=== PATIENT | female | born 1965 | race Caucasian/White ===

== ENCOUNTER 2021-06-30 15:51 | Observation (INO) | payer BC ==
--- NOTE | 2021-06-30 16:25 | ED ---
General Adult HPI - General Chief complaint: Chest Pain Stated complaint: chest tightness,HBP Time Seen by Provider: 06/30/21 16:13 Source: patient Mode of arrival: wheelchair Limitations: no limitations - History of Present Illness Initial comments: Dictation was produced using [employer] dictation software. please excuse any grammatical, word or spelling errors. Chief Complaint: 55-year-old female past medical history of hypertension and a Kierra's thyroiditis presents to emergency department for elevated blood pressure and chest tightness. History of Present Illness: 55-year-old female just emergency department for chest tightness and hypertension. She states she feels slightly anxious. She states that she has chest tightness. She describes it as a squeezing chest pressure that radiates to her right jaw. Patient denies any history of coronary artery disease. She is recently diagnosed hypertension and feels like her medications aren't working. She is feeling very anxious due to a lot of personal stressors in the last year. The ROS documented in this emergency department record has been reviewed and confirmed by me. Those systems with pertinent positive or negative responses have been documented in the HPI. All other systems are other negative and/or noncontributory. PHYSICAL EXAM: General Impression: Alert and oriented x3, not in acute distress HEENT: Normocephalic atraumatic, extra-ocular movements intact, pupils equal and reactive to light bilaterally, mucous membranes moist. Cardiovascular: Heart regular rate and rhythm Chest: Able to complete full sentences, no retractions, no tachypnea Abdomen: abdomen soft, non-tender, non-distended, no organomegaly Musculoskeletal: Pulses present and equal in all extremities, no peripheral edema Motor: no focal deficits noted Neurological: CN II-XII grossly intact, no focal motor or sensory deficits noted Skin: Intact with no visualized rashes Psych: Normal affect and mood ED course: 55-year-old well-appearing female presents with trouble chest pain with typical features. Vital signs upon arrival are within acceptable limits. Laboratory evaluation obtained. Mild leukocytosis of 11.5, macrocytosis 12.7, hemoglobin 16.2. Coagulation panel is negative. Sodium 129, potassium 3.0. Troponin is negative. The liver enzymes. Chest x-ray is nonacute. Patient given aspirin. Disposition options were discussed she is agreeable for admission. Patient's injury with IV fluids. Troponin is treated with oral potassium. Patient agreeable with admission to observation with consult to cardiology. EKG interpretation: Ventricular rate 90, normal sinus rhythm,. Interval 150, QRS 90, QTC 486. No [place] prolongation, no QTC prolongation, no ST or T-wave changes noted. Overall, this EKG is unremarkable - Related Data Home Medications Medication Instructions Recorded Confirmed Ascorbic Acid [Vitamin C] 1,000 mg PO DAILY 06/30/21 06/30/21 Cholecalciferol [Vitamin D3 (25 25 mcg PO DAILY 06/30/21 06/30/21 Mcg = 1000 Iu)] Levothyroxine Sodium [Synthroid] 175 mcg PO DAILY 06/30/21 06/30/21 [place]-3 Fatty Acids/Fish Oil [Fish 1 cap PO DAILY 06/30/21 06/30/21 Oil 1,000 mg Softgel] Ubidecarenone [Co Q-10] 100 mg PO DAILY 06/30/21 06/30/21 Zinc Gluconate [Zinc] 50 mg PO DAILY 06/30/21 06/30/21 hydroCHLOROthiazide 25 mg PO DAILY 06/30/21 06/30/21 Allergies Allergy/AdvReac Type Severity Reaction Status Date / Time Penicillins Allergy Unknown Verified 06/30/21 17:35 Review of Systems ROS Statement: Those systems with pertinent positive or pertinent negative responses have been documented in the HPI. ROS Other: All systems not noted in ROS Statement are negative. Past Medical History Past Medical History: Hypertension, Thyroid Disorder Additional Past Medical History / Comment(s): hashimotos History of Any Multi-Drug Resistant Organisms: None Reported Past Surgical History: Section Past Psychological History: Anxiety, Depression, PTSD Smoking Status: Never smoker Past Alcohol Use History: Daily Past Drug Use History: None Reported General Exam Limitations: no limitations Course Vital Signs 06/30/21 15:59 Temperature 98.2 F Pulse Rate 96 Respiratory 16 Rate Blood Pressure 160/106 O2 Sat by Pulse 95 Oximetry Medical Decision Making - Lab Data Result diagrams: 06/30/21 16:26 06/30/21 16:26 Lab Results 06/30/21 06/30/21 06/30/21 Range/Units 16:26 16:26 16:26 WBC 11.5 H (3.8-10.6) k/uL RBC 4.49 (3.80-5.40) m/uL Hgb 16.2 H (11.4-16.0) gm/dL Hct 46.1 H (34.0-46.0) % MCV 102.7 H (80.0-100.0) fL MCH 36.2 H (25.0-35.0) pg MCHC 35.2 (31.0-37.0) g/dL RDW 13.2 (11.5-15.5) % Plt Count 256 (150-450) k/uL MPV 7.6 Neutrophils % (Manual) 77 % Lymphocytes % (Manual) 15 % Monocytes % (Manual) 6 % Eosinophils % (Manual) 2 % Neutrophils # (Manual) 8.86 H (1.3-7.7) k/uL Lymphocytes # (Manual) 1.73 (1.0-4.8) k/uL Monocytes # (Manual) 0.69 (0-1.0) k/uL Eosinophils # (Manual) 0.23 (0-0.7) k/uL Nucleated RBCs 0 (0-0) /100 WBC Manual Slide Review Performed Macrocytosis Slight PT 11.4 (9.0-12.0) sec INR 1.1 (<1.2) APTT 24.7 (22.0-30.0) sec Sodium 129 L (137-145) mmol/L Potassium 3.0 L (3.5-5.1) mmol/L Chloride 89 L (98-107) mmol/L Carbon Dioxide 28 (22-30) mmol/L Anion Gap 12 mmol/L BUN 7 (7-17) mg/dL Creatinine 0.40 L (0.52-1.04) mg/dL Est GFR (CKD-EPI)AfAm >90 (>60 ml/min/1.73 sqM) Est GFR (CKD-EPI)NonAf >90 (>60 ml/min/1.73 sqM) Glucose 114 H (74-99) mg/dL Calcium 10.3 H (8.4-10.2) mg/dL Magnesium 1.4 L (1.6-2.3) mg/dL Total Bilirubin 2.7 H (0.2-1.3) mg/dL AST 153 H (14-36) U/L ALT 95 H (4-34) U/L Alkaline Phosphatase 193 H (38-126) U/L Troponin I (0.000-0.034) ng/mL Total Protein 8.4 H (6.3-8.2) g/dL Albumin 4.9 (3.5-5.0) g/dL 06/30/21 Range/Units 16:26 WBC (3.8-10.6) k/uL RBC (3.80-5.40) m/uL Hgb (11.4-16.0) gm/dL Hct (34.0-46.0) % MCV (80.0-100.0) fL MCH (25.0-35.0) pg MCHC (31.0-37.0) g/dL RDW (11.5-15.5) % Plt Count (150-450) k/uL MPV Neutrophils % (Manual) % Lymphocytes % (Manual) % Monocytes % (Manual) % Eosinophils % (Manual) % Neutrophils # (Manual) (1.3-7.7) k/uL Lymphocytes # (Manual) (1.0-4.8) k/uL Monocytes # (Manual) (0-1.0) k/uL Eosinophils # (Manual) (0-0.7) k/uL Nucleated RBCs (0-0) /100 WBC Manual Slide Review Macrocytosis PT (9.0-12.0) sec INR (<1.2) APTT (22.0-30.0) sec Sodium (137-145) mmol/L Potassium (3.5-5.1) mmol/L Chloride (98-107) mmol/L Carbon Dioxide (22-30) mmol/L Anion Gap mmol/L BUN (7-17) mg/dL Creatinine (0.52-1.04) mg/dL Est GFR (CKD-EPI)AfAm (>60 ml/min/1.73 sqM) Est GFR (CKD-EPI)NonAf (>60 ml/min/1.73 sqM) Glucose (74-99) mg/dL Calcium (8.4-10.2) mg/dL Magnesium (1.6-2.3) mg/dL Total Bilirubin (0.2-1.3) mg/dL AST (14-36) U/L ALT (4-34) U/L Alkaline Phosphatase (38-126) U/L Troponin I <0.012 (0.000-0.034) ng/mL Total Protein (6.3-8.2) g/dL Albumin (3.5-5.0) g/dL Disposition Clinical Impression: Chest pain Disposition: ADMITTED IP TO THIS HOSP Condition: Fair Referrals: Marina Child III, MD [Primary Care Provider] - 1-2 days
[2021-06-30 16:41] LABS: HCT 46.1 % (34.0-46.0); HGB 16.2 gm/dL (11.4-16.0); MCH 36.2 pg (25.0-35.0); MCHC 35.2 g/dL (31.0-37.0); MCV 102.7 fL (80.0-100.0); Macrocytosis Slight; Mean Platelet Volume 7.6; Platelet Count 256 k/uL (150-450); RBC 4.49 m/uL (3.80-5.40); RDW 13.2 % (11.5-15.5); WBC 11.5 k/uL (3.8-10.6)
[2021-06-30 16:46] LABS: ALT 95 U/L (4-34); AST 153 U/L (14-36); African American GFR (CKD) >90 (>60 ml/min/1.73 sqM); Albumin 4.9 g/dL (3.5-5.0); Alkaline Phosphatase 193 U/L (38-126); Anion Gap 12 mmol/L; Blood Urea Nitrogen 7 mg/dL (7-17); Calcium 10.3 mg/dL (8.4-10.2); Carbon Dioxide 28 mmol/L (22-30); Chloride 89 mmol/L (98-107); Glucose 114 mg/dL (74-99); Magnesium 1.4 mg/dL (1.6-2.3); Non-African American GFR(CKD) >90 (>60 ml/min/1.73 sqM); Sodium 129 mmol/L (137-145); Total Bilirubin 2.7 mg/dL (0.2-1.3); Total Protein 8.4 g/dL (6.3-8.2)
--- NOTE | 2021-06-30 16:46 | XR ---
EXAMINATION TYPE: XR chest 2V DATE OF EXAM: 06/30/2021 COMPARISON: NONE HISTORY: Hypertension TECHNIQUE: FINDINGS: Heart and mediastinum are normal. Lungs are clear. Diaphragm is normal. Bony thorax is inta ct. There are chest leads. IMPRESSION: Normal chest.
[2021-06-30 16:54] LABS: INR 1.1 (<1.2); Partial Thromboplastin Time 24.7 sec (22.0-30.0); Prothrombin Time 11.4 sec (9.0-12.0)
[2021-06-30 17:24] LABS: Eosinophils # (M) 0.23 k/uL (0-0.7); Lymphocytes # (M) 1.73 k/uL (1.0-4.8); Monocytes # (M) 0.69 k/uL (0-1.0); Neutrophils # (M) 8.86 k/uL (1.3-7.7); Neutrophils % (M) 77 %; Nucleated Red Blood Cells 0 /100 WBC (0-0); Total Cells Counted 100
[2021-06-30] MEDS ORDERED: ASPIRIN 81 MG PO STA (17:42)
[2021-06-30] MEDS ORDERED: NITROGLYCERIN SL TABS 0.4 MG TAB SUBLINGUAL PRN (17:42)
[2021-06-30] MEDS ORDERED: SODIUM CHLORIDE 0.9% 1,000 ML IV STA (17:44)
[2021-06-30] MEDS ORDERED: POTASSIUM CHLORIDE ER 20 MEQ TAB.ER PO STA (17:44)
[2021-06-30] MEDS ORDERED: Magnesium Replacement Protocol 1 EACH MISC MISCELLANE PRN (20:52)
[2021-06-30] MEDS: MAGNESIUM SULFATE-D5W PMX 1 GM in DEXTROSE/WATER 1 100ML.BAG IVPB SCH ×2 (22:03→23:38)
[2021-07-01] MEDS: MAGNESIUM SULFATE-D5W PMX 1 GM in DEXTROSE/WATER 1 100ML.BAG IVPB SCH (00:48)
[2021-07-01] MEDS ORDERED: LEVOTHYROXINE 100 MCG TAB PO SCH (06:30)
[2021-07-01] MEDS ORDERED: LEVOTHYROXINE 75 MCG TAB PO SCH (06:30)
[2021-07-01 08:04] VITALS: PULSE 100; RESP 16; TEMP 98.4
[2021-07-01 08:53] LABS: HCT 43.4 % (37.2-46.3); HGB 15.1 g/dL (12.0-15.0); MCH 34.3 pg (27.0-32.0); MCHC 34.8 g/dL (32.0-37.0); MCV 98.6 fL (80.0-97.0); Platelet Count 202 X 10*3/uL (140-440); RDW 12.5 % (11.5-14.5); WBC 6.33 X 10*3/uL (4.50-10.00)
[2021-07-01] MEDS ORDERED: ASPIRIN 325 MG TAB PO SCH (09:00)
[2021-07-01] MEDS ORDERED: hydroCHLOROthiazide 25 MG TAB PO SCH (09:00)
[2021-07-01] MEDS ORDERED: POTASSIUM CHLORIDE ER 20 MEQ TAB.ER PO STA ×2 (09:29→14:24)
[2021-07-01] MEDS ORDERED: amLODIPine 5 MG TAB PO SCH (09:30)
--- NOTE | 2021-07-01 09:57 | P.CRDCN ---
History of Present Illness Consult date: 07/01/21 History of present illness: This is a 55-year-old female with history of hypertension and Kierra's thyroiditis and also alcohol use who started having a tight feeling in the chest that radiated to the jaw associated with some nausea and also shortness of breath. Patient apparently was diagnosed to have hypertension and was recently started on hydrochlorothiazide. There is a history that dose was increased recently. She claimed the other day. Her blood pressure was well controlled, but when she was having symptoms. Her blood pressure was in the range of 170/ 120. She called the primary care physician who advised them to come to the hospital. On admission here patient was found to have hyponatremia and also hypokalemia and also elevated liver enzymes and PHOSPHATASE. APPARENTLY THERE WAS SOME ABNORMAL LIVER ENZYMES IN THE PAST. She had an until midnight last night and seemed to be gradually improving. Her EKG did not reveal any acute changes and her cardiac enzymes are negative. Her blood pressure has been fluctuating. I'm going to discontinue hydrochlorothiazide and give her supplemental potassium and correct hypokalemia and also continue the normal saline to correct her hyponatremia. We'll get an ultrasound of the abdomen to rule out any gallstones or gallbladder disease. Echocardiogram will be ordered. Clinically her pains appear to be atypical. Patient doesn't have any significant risk factors except her mother had heart tissue in her 70s. If the other tests are normal and she remains stable, she will be discharged home for outpatient stress test. Further examination depend upon clinical course Review of Systems As per the chart Past Medical History Past Medical History: Hypertension, Thyroid Disorder Additional Past Medical History / Comment(s): hashimotos History of Any Multi-Drug Resistant Organisms: None Reported Past Surgical History: Section Past Anesthesia/Blood Transfusion Reactions: No Reported Reaction Past Psychological History: Anxiety, Depression, PTSD Smoking Status: Never smoker Past Alcohol Use History: Daily Past Drug Use History: None Reported Medications and Allergies Home Medications Medication Instructions Recorded Confirmed Type Ascorbic Acid [Vitamin C] 1,000 mg PO DAILY 06/30/21 06/30/21 History Cholecalciferol [Vitamin D3 (25 25 mcg PO DAILY 06/30/21 06/30/21 History Mcg = 1000 Iu)] Levothyroxine Sodium [Synthroid] 175 mcg PO DAILY 06/30/21 06/30/21 History [place]-3 Fatty Acids/Fish Oil [Fish 1 cap PO DAILY 06/30/21 06/30/21 History Oil 1,000 mg Softgel] Ubidecarenone [Co Q-10] 100 mg PO DAILY 06/30/21 06/30/21 History Zinc Gluconate [Zinc] 50 mg PO DAILY 06/30/21 06/30/21 History hydroCHLOROthiazide 25 mg PO DAILY 06/30/21 06/30/21 History Allergies Allergy/AdvReac Type Severity Reaction Status Date / Time Penicillins Allergy Unknown Verified 06/30/21 17:35 Physical Exam Vitals: Vital Signs Temp Pulse Pulse Resp BP BP Pulse Ox 07/01/21 08:00 100 16 07/01/21 07:00 98.4 F 100 16 174/111 95 07/01/21 02:36 79 18 07/01/21 01:02 98.8 F 79 18 130/83 98 06/30/21 23:01 98.4 F 77 20 144/88 96 06/30/21 21:30 77 20 06/30/21 19:05 98.2 F 77 20 168/99 96 06/30/21 18:28 138/105 06/30/21 18:00 87 13 146/112 96 06/30/21 15:59 98.2 F 96 16 160/106 95 Intake and Output 06/30/21 07/01/21 07/01/21 22:59 06:59 14:59 Other: Voiding Method Toilet Toilet Toilet # Voids 2 2 Weight 81.647 kg GENERAL EXAM: Patient is alert and oriented and doesn't appear to be in any acute distress HEENT: Normocephalic. Normal reaction of pupils, equal size, normal range of extraocular motion. No erythema or exudates in the throat. NECK: No masses, no nuchal rigidity. CHEST: No chest wall deformity. LUNGS: Equal air entry with no crackles or wheeze. HEART: S1 and S2 normal with no audible mumurs or gallops. Regular rhythm, femorals equal on both sides.. ABDOMEN: No hepatosplenomegaly, normal bowel sounds, no guarding or rigidity. SKIN: No rashes CENTRAL NERVOUS SYSTEM: No focal deficits. EXTREMITIES: No cyanosis, clubbing or edema. Results 07/01/21 06:16 06/30/21 16:26 Cardiac Enzymes 06/30/21 06/30/21 06/30/21 Range/Units 16:26 16:26 19:20 AST 153 H (14-36) U/L Troponin I <0.012 <0.012 (0.000-0.034) ng/mL 06/30/21 Range/Units 23:08 AST (14-36) U/L Troponin I <0.012 (0.000-0.034) ng/mL Coagulation 06/30/21 Range/Units 16:26 PT 11.4 (9.0-12.0) sec APTT 24.7 (22.0-30.0) sec CBC 21 07/01/21 Range/Units 16:26 06:16 WBC 11.5 H 6.33 (3.8-10.6) k/uL RBC 4.49 4.40 (3.80-5.40) m/uL Hgb 16.2 H 15.1 H (11.4-16.0) gm/dL Hct 46.1 H 43.4 (34.0-46.0) % Plt Count 256 202 (150-450) k/uL Comprehensive Metabolic Panel 06/30/21 Range/Units 16:26 Sodium 129 L (137-145) mmol/L Potassium 3.0 L (3.5-5.1) mmol/L Chloride 89 L (98-107) mmol/L Carbon Dioxide 28 (22-30) mmol/L BUN 7 (7-17) mg/dL Creatinine 0.40 L (0.52-1.04) mg/dL Glucose 114 H (74-99) mg/dL Calcium 10.3 H (8.4-10.2) mg/dL AST 153 H (14-36) U/L ALT 95 H (4-34) U/L Alkaline Phosphatase 193 H (38-126) U/L Total Protein 8.4 H (6.3-8.2) g/dL Albumin 4.9 (3.5-5.0) g/dL Current Medications Generic Name Dose Route Start Last Admin Trade Name Freq PRN Reason Stop Dose Admin Amlodipine Besylate 5 mg 07/01/21 09:30 07/01/21 09:43 Amlodipine 5 Mg Tab PO 5 mg DAILY KARY Administration Aspirin 325 mg 07/01/21 09:00 07/01/21 08:15 Aspirin 325 Mg Tab PO 325 mg DAILY KARY Administration Levothyroxine Sodium 100 mcg 07/01/21 06:30 07/01/21 06:08 Levothyroxine 100 Mcg Tab PO 100 mcg DAILY@0630 KARY Administration Levothyroxine Sodium 75 mcg 07/01/21 06:30 07/01/21 06:08 Levothyroxine 75 Mcg Tab PO 75 mcg DAILY@0630 KARY Administration Miscellaneous Information 1 each 06/30/21 20:52 Magnesium Replacement Protocol 1 Each Misc MISCELLANE DAILY PRN Per Protocol Protocol Nitroglycerin 0.4 mg 06/30/21 17:42 Nitroglycerin Sl Tabs 0.4 Mg Tab SUBLINGUAL Q5M PRN Chest Pain Intake and Output 06/30/21 07/01/21 07/01/21 22:59 06:59 14:59 Other: Voiding Method Toilet Toilet Toilet # Voids 2 2 Weight 81.647 kg 07/01/21 06:16 06/30/21 16:26 EKG Interpretations (text) Social sinus rhythm with poor R-wave progression in the anterior leads. Questionable change of previous anterior and inferior wall SC but I doubt very much patient had any previous SC. Assessment and Plan (1) Hyponatremia Current Visit: Yes Status: Acute Code(s): E87.1 - HYPO-OSMOLALITY AND H YPONATREMIA SNOMED Code(s): 78218996 (2) Chest pain Current Visit: Yes Status: Acute Code(s): R07.9 - CHEST PAIN, UNSPECIFIED SNOMED Code(s): 79459545 (3) Hypomagnesemia Current Visit: Yes Status: Acute Code(s): E83.42 - HYPOMAGNESEMIA SNOMED Code(s): 637928202 (4) Hypokalemia Current Visit: Yes Status: Acute Code(s): E87.6 - HYPOKALEMIA SNOMED Code(s): 23259166 (5) Abnormal liver enzymes Current Visit: Yes Status: Acute Code(s): R74.8 - ABNORMAL LEVELS OF OTHER SERUM ENZYMES SNOMED Code(s): 993132693 Plan: Chest pains appear to be atypical. Rule out possibility of angina. Patient has multiple other issues including hypertension, hyponatremia, hypokalemia and thyroiditis. She also has abnormal liver enzymes. Patient is advised to stay away from alcohol. Patient is going to have an ultrasound of the abdomen and also echocardiogram. Correct electrolyte abnormalities. He patient is stable, she could be discharged home and be considered for outpatient stress test
--- NOTE | 2021-07-01 10:51 | US ---
EXAMINATION TYPE: US gallbladder DATE OF EXAM: 07/01/2021 COMPARISON: NONE CLINICAL HISTORY: cp/abd pain. Abdominal pain. EXAM MEASUREMENTS: Liver Length: 15.3 cm Gallbladder Wall: 0.26 cm CBD: 0.64 cm Right Kidney: 11.3 x 6.0 x 5.6 cm Limited exam due to overlying bowel gas. Pancreas: Obscured by gas. Liver: Appears heterogeneous and very coarse in echotexture. Hepatic parenchymal echogenicity is in creased. Heterogeneous area of liver tissue seen adjacent to the gallbladder: 5.1 x 2.6 x 3.6 cm. Gallbladder: Many folds seen. Positioned anteriorly. Minimal internal echoes versus artifact seen. Evidence for sonographic Blackman's sign: No CBD: Measures upper limits of normal. 6 to 7 mm. Right Kidney: No hydronephrosis or masses seen. No free fluid seen in the abdomen. IMPRESSION: 1. Heterogeneous coarse echotexture liver, findings likely on the basis of hepatic steatosis with foc al area of fatty sparing. Difficult to exclude underlying small hepatic nodule. 2. Gallbladder sludge versus artifact, no pericholecystic fluid. Gallbladder wall thickness is normal . 3. CBD diameter 6 to 7 mm at the upper limits of normal correlation with bilirubin/liver function lori ts in the.
[2021-07-01 12:08] VITALS: BP 144/89
[2021-07-01 12:56] LABS: ALT 80 U/L (4-34); AST 140 U/L (14-36); African American GFR (CKD) >90 (>60 ml/min/1.73 sqM); Albumin 4.2 g/dL (3.5-5.0); Albumin/Globulin Ratio 1.4; Alkaline Phosphatase 141 U/L (38-126); Anion Gap 10 mmol/L; Blood Urea Nitrogen 6 mg/dL (7-17); Calcium 9.8 mg/dL (8.4-10.2); Carbon Dioxide 30 mmol/L (22-30); Chloride 97 mmol/L (98-107); Globulin 3.1 g/dL; Glucose 109 mg/dL (74-99); Non-African American GFR(CKD) >90 (>60 ml/min/1.73 sqM); Potassium 3.1 mmol/L (3.5-5.1); Sodium 137 mmol/L (137-145); Total Bilirubin 2.4 mg/dL (0.2-1.3); Total Protein 7.3 g/dL (6.3-8.2)
[2021-07-01] MEDS ORDERED: Potassium Replacement Protocol 1 EACH MISC MISCELLANE PRN (13:12)
[2021-07-01 13:55] LABS: African American GFR (CKD) 118.9 (60.0-200.0); Albumin 4.4 g/dL (3.80-4.90); Albumin/Globulin Ratio 1.57 (1.60-3.17); Anion Gap 10.9 mmol/L (4.00-12.00); Calcium 9.8 mg/dL (8.7-10.3); Carbon Dioxide 29.1 mmol/L (21.6-31.8); Chol/HDL Ratio 2.88; Globulin 2.8 g/dL (1.6-3.3); LDL Cholesterol,Calculated 151.6 mg/dL (0.0-131.0); Magnesium 1.9 mg/dL (1.5-2.4); Non-African American GFR(CKD) 102.6 (60.0-200.0); Total Bilirubin 2.6 mg/dL (0.3-1.2); Total Protein 7.2 g/dL (6.2-8.2); VLDL Calculation 17.4 mg/dL (5.00-40.00)
[2021-07-01] MEDS ORDERED: POTASSIUM CHLORIDE ER 20 MEQ TAB.ER PO SCH (15:00)
--- NOTE | 2021-07-01 15:49 | HP ---
HISTORY AND PHYSICAL HISTORY AND PHYSICAL/DISCHARGE SUMMARY: CHIEF COMPLAINTS: Chest tightness. HISTORY OF PRESENT ILLNESS: This 55-year-old woman with a past medical history of hypertension, hypothyroidism, history of Kierra's, being followed by Dr. Child in the outpatient setting and Karlie in the outpatient setting was admitted with chest pain. The patient had chest pain which was mild to moderate intensity which was felt in the anterior part of chest. It was squeezing type of pain without associated palpitations. Patient came to [facility]. The cardiac enzymes were negative. Cardiology saw the patient, recommended outpatient followup. However, the patient also had elevated bilirubin and evidence of hepatitis also. Patient is taking more than 2 drinks apparently per day which is being evaluated. Bilirubin is elevated to 2.7, but however the patient is keen on going home at this time. Cardiology cleared the patient for discharge. Recommended no alcohol at home currently. There is no history of fever, rigors, no history of headache, loss of consciousness or seizures. PAST MEDICAL HISTORY: History of hypertension, hypothyroidism, Kierra's. MEDICATIONS: Home medications are Protonix, zinc, vitamin D3, vitamin C, hydrochlorothiazide, coenzyme Q, omega-3 fatty acids, levothyroxine, Norvasc doses reviewed. ALLERGIES: PENICILLIN. FAMILY HISTORY: No history of heart disease or strokes in the family. SOCIAL HISTORY: No history of smoking, alcohol as mentioned earlier. REVIEW OF SYSTEMS: ENT: No diminished vision. No diminished hearing. Cardiovascular as mentioned earlier. Respiratory as mentioned earlier. GI: As mentioned earlier. no dysuria. Nervous system: No numbness, weakness. Allergy/Immunology: No asthma or hayfever. Musculoskeletal as mentioned earlier. Hematology/oncology: No history of diabetes, hypothyroid. Constitutional: As mentioned earlier. Dermatology negative. Rheumatology: Negative. Psychiatry as mentioned earlier. PHYSICAL EXAMINATION: Alert and oriented times three. Pulse 100. Blood pressure 174/111 improved to 145/89, respirations 16, temperature 98.4, pulse ox 94% on room air. HEENT is conjunctivae normal. Oral mucosa moist. NECK is no jugular venous distention. No carotid bruit. No lymph node enlargement. CARDIOVASCULAR system: S1, S2 muffled. No S3, no S4. RESPIRATION: Breath sounds diminished in the bases. No rhonchi. No crackles. ABDOMEN: Soft, obese, mild diffuse discomfort. LEGS: No edema. No swelling. NERVOUS SYSTEM: Higher functions as mentioned earlier. Moves all four limbs. No focal motor or sensory deficits. LYMPHATICS: No lymph nodes palpable in the neck, axillae or groin. SKIN: No ulcer, no rash and no bleeding. JOINTS: No active deforming arthropathy. LABS: WBC 6.3, hemoglobin 15.1, sodium 137, potassium 3.1. Otherwise the total bilirubin is 2.4, AST is 140, ALT is 80 and cholesterol is 215. ASSESSMENT: 1. Chest pain possible unstable angina. Myocardial infarction ruled out. 2. Elevated bilirubin possibly hepatitis, possibly alcoholic in nature. 3. Hypercholesterolemia. 4. Hypokalemia. 5. Hyponatremia. 6. Increased WBC improved. 7. Increased hemoglobin. 8. Hypertension. 9. Hypothyroidism. 10.History of Kierra's. 11.History of anxiety/depression, PTSD. RECOMMENDATIONS AND DISCUSSION: In this 55-year-old woman who presented with multiple medical problems at this time, patient is improved significantly. Patient is extremely keen on going home. I recommend the patient to do outpatient stress test and evaluation with Gastroenterology and stop ETOH at this time. DISCHARGE ADVICE AND MEDICATIONS: 1. Diet is cardiac diet. 2. Activity limited until followup. 3. Follow up with Dr. Child 2-3 days. 4. CBC and BMP. 5. Follow up with Dr. Lara as recommended. 6. Follow with Cardiology as recommended. 7. Coenzyme Q 100 mg p.o. daily. 8. [place]-3 fatty acids 1 p.o. daily. 9. Hydrochlorothiazide 25 mg daily. 10.Protonix 40 mg daily. 11.Levothyroxine 175 mcg p.o. daily. 12.Vitamin C 1000 mg daily. 13.Vitamin D3 25 mcg p.o. daily. 14.Zinc 50 mg p.o. daily. 15.Norvasc 5 mg p.o. daily. 16.No ETOH. Once again, the patient will be discharged in stable condition with guarded prognosis. MMODL / IJN: [id number] /
--- NOTE | 2021-07-02 10:46 | ECHOF ---
Referral Reason:cp MEASUREMENTS -------- HEIGHT: 162.6 cm WEIGHT: 81.7 kg BP: RVIDd: 3.0 cm (< 3.3) IVSd: 1.3 cm (0.6 - 1.1) LVIDd: 4.4 cm (3.9 - 5.3) LVPWd: 1.4 cm (0.6 - 1.1) IVSs: 1.6 cm LVIDs: 3.5 cm LVPWs: 1.3 cm LAESV Index (A-L): 27.12 ml/m Ao Diam: 2.8 cm (2.0 - 3.7) AV Cusp: 2.2 cm (1.5 - 2.6) LA Diam: 3.6 cm (2.7 - 3.8) MV EXCURSION: 13.536 mm (> 18.000) MV EF SLOPE: 73 mm/s (70 - 150) EPSS: 0.3 cm MV E Steven: 0.52 m/s MV DecT: 254 ms MV A Steven: 0.73 m/s MV E/A Ratio: 0.70 RAP: 5.00 mmHg RVSP: 13.38 mmHg FINDINGS -------- Sinus rhythm. This was a technically adequate study. The left ventricular size is normal. There is mild concentric left ventricular hypertrophy. Overa ll left ventricular systolic function is normal with, an EF between 55 - 60 %. The right ventricle is normal in size. Normal LA size by volume 22+/-6 ml/m2. The right atrial size is normal. There is mild aortic valve sclerosis. There is no evidence of aortic regurgitation. Mild mitral regurgitation is present. Mild tricuspid regurgitation present. Right ventricular systolic pressure is normal at < 35 mmHg. The pulmonic valve was not well visualized. There is no pericardial effusion. CONCLUSIONS -------- 1. The left ventricular size is normal. 2. There is mild concentric left ventricular hypertrophy. 3. Overall left ventricular systolic function is normal with, an EF between 55 - 60 %. 4. The right ventricle is normal in size. 5. Normal LA size by volume 22+/-6 ml/m2. 6. The right atrial size is normal. 7. There is mild aortic valve sclerosis. 8. Mild mitral regurgitation is present. 9. Mild tricuspid regurgitation present. 10. The pulmonic valve was not well visualized. 11. There is no pericardial effusion. PS[employer]CHI[employer]IC [employer]IAL WORKER SUPERVISOR: Olga Hummel RDCS
[2021-07-02 16:11] LABS: Hepatitis A Antibody IgM Non-Reactive (Non-Reactive); Hepatitis B Core IgM Non-Reactive (Non-Reactive); Hepatitis B Surface Antigen Non-Reactive (Non-Reactive); Hepatitis C IgG Antibody Non-Reactive (Non-Reactive)
== END 2021-07-01 14:49 | disposition home or self-care (01) ==
LOC: EC 15:51 → 6NMEDSUR 17:43 → OBSVTOIN 07-01 09:01 → INTOOBSV 07-01 09:01 → UNDODISIN 07-01 14:49
PROVIDERS: ADMIT Internal Medicine; ATTEND Internal Medicine
DX: R07.89 Other chest pain (principal); R11.0 Nausea; R06.02 Shortness of breath; E80.7 Disorder of bilirubin metabolism, unspecified; E78.00 Pure hypercholesterolemia, unspecified; E87.6 Hypokalemia; E87.1 Hypo-osmolality and hyponatremia; D72.829 Elevated white blood cell count, unspecified; D58.2 Other hemoglobinopathies; I10 Essential (primary) hypertension; E06.3 Autoimmune thyroiditis; F41.9 Anxiety disorder, unspecified; F32.9 Major depressive disorder, single episode, unspecified; F43.10 Post-traumatic stress disorder, unspecified; I11.9 Hypertensive heart disease without heart failure; I08.3 Combined rheumatic disorders of mitral, aortic and tricuspid valves; D75.89 Other specified diseases of blood and blood-forming organs; R74.8 Abnormal levels of other serum enzymes; E83.42 Hypomagnesemia; Z79.899 Other long term (current) drug therapy; Z79.890 Hormone replacement therapy; Z88.0 Allergy status to penicillin; Z73.3 Stress, not elsewhere classified
CPT/HCPCS: 96365; 96366 ×2; 99285; 36415; 93005; 93306; 80061; 80053 ×2; 80074; 83735 ×2; 84484; 85025; 85027; 85610; 85730; 71046; 76705; G0378 ×2; J3475 ×2

== ENCOUNTER → 2021-07-06 | Outpatient (CLI) | payer BC ==
--- NOTE | 2021-07-06 14:32 | US ---
EXAMINATION TYPE: US thyroid st tissue head/neck DATE OF EXAM: 07/06/2021 COMPARISON: NONE CLINICAL HISTORY: 55-year-old female E03.9 Hypothyroidism. On synthroid for 30+yrs, hypothyroidism TECHNIQUE: Multiple sonographic images of the thyroid gland are obtained. FINDINGS: GLAND SIZE: Right Lobe: 2.0 x 0.9 x 1.1 cm Overall Parenchyma: heterogenous Left Lobe: 2.1 x 0.6 x 0.5 cm Overall Parenchyma: heterogeneous Isthmus Thickness: 0.2 cm NODULES RIGHT: # of nodules measured on right: 0 LEFT: # of nodules measured on left: 0 ISTHMUS: # of nodules measured in the isthmus: 0 Bilateral neck scanned, no evidence of lymphadenopathy. IMPRESSION: Small heterogeneous gland compatible with chronic hypothyroidism. No discrete nodules are seen.
--- NOTE | 2021-07-10 09:34 | MM ---
Reason for exam: screening (asymptomatic). Last mammogram was performed 11 years ago. History: Patient is postmenopausal. Family history of breast cancer in sister at age 55 and premenopausal breast cancer in mother at age 44. Benign stereotactic core biopsy of the right breast, March 06, 2001. Core biopsy of the right breast. Took hormonal contraceptives for 4 years. Physical Findings: A clinical breast exam by your physician is recommended on an annual basis and results should be correlated with mammographic findings. MG 3D Screening Mammo W/Cad Bilateral CC and MLO view(s) were taken. Prior study comparison: July 10, 2010, bilateral diagnostic digital mammog. The breast tissue is heterogeneously dense. This may lower the sensitivity of mammography. Previous mammotome biopsy in the right breast. Superior asymmetric density right breast middle depth incompletely disperses on 3D images. ASSESSMENT: Incomplete: need additional imaging evaluation, BI-RAD 0 RECOMMENDATION: Special view mammogram of the right breast. (3D) If lesion persists on supplemental views, image directed ultrasound is recommended. [facility] will attempt to contact patient to return for supplemental views and ultrasound if indicated.
== END | disposition home or self-care (01) ==
LOC: RADMAMWWP 09:22
PROVIDERS: ATTEND Family Medicine
DX: Z12.31 Encounter for screening mammogram for malignant neoplasm of breast (principal); E03.9 Hypothyroidism, unspecified; Z78.0 Asymptomatic menopausal state; Z80.3 Family history of malignant neoplasm of breast; Z79.3 Long term (current) use of hormonal contraceptives
CPT/HCPCS: 76536; 77063; 77067

== ENCOUNTER → 2021-07-11 | Outpatient (CLI) | payer BC ==
--- NOTE | 2021-07-11 11:12 | MM ---
Reason for exam: additional evaluation requested from abnormal screening. Last mammogram was performed less than 1 month ago. History: Patient is postmenopausal. Family history of breast cancer in sister at age 55 and premenopausal breast cancer in mother at age 44. Benign stereotactic core biopsy of the right breast, March 06, 2001. Core biopsy of the right breast. Took hormonal contraceptives for 4 years. Physical Findings: Nurse did not find any significant physical abnormalities on exam. MG 3D Work Up W/Cad RT Spot compression CC and LM view(s) were taken of the right breast. Prior study comparison: July 06, 2021, bilateral MG 3d screening mammo w/cad. The breast tissue is heterogeneously dense. This may lower the sensitivity of mammography. The superior asymmetric density appears to disperse on additional views. 6 month follow up recommended. These results were verbally communicated with the patient and result sheet given to the patient on 07/11/21. ASSESSMENT: Probably benign, BI-RAD 3 RECOMMENDATION: Follow-up diagnostic mammogram of the right breast in 6 months.
== END | disposition home or self-care (01) ==
LOC: RADMAMWWP 10:19
PROVIDERS: ATTEND Family Medicine
DX: N64.89 Other specified disorders of breast (principal); Z80.3 Family history of malignant neoplasm of breast; Z78.0 Asymptomatic menopausal state
CPT/HCPCS: 77061; 77065

== ENCOUNTER → 2023-12-24 | Outpatient (CLI) | payer OTHER ==
--- NOTE | 2023-12-24 21:35 | XR ---
EXAMINATION TYPE: XR chest 2V DATE OF EXAM: 12/24/2023 COMPARISON: 06/30/2021 HISTORY: 58-year-old female J42, chronic bronchitis TECHNIQUE: 2 views FINDINGS: Heart upper limits of normal in size. Aorta and pulmonary vasculature are within normal limits. There is slight bronchial wall thickening on the lateral view. Otherwise, lungs and pleural spaces are maryann ar. IMPRESSION: Suggestion of slight bronchial wall thickening on the lateral view may be seen with bronchitis or ast hma. Otherwise, no acute process is seen.
== END | disposition home or self-care (01) ==
LOC: RADXRMAIN 13:26
PROVIDERS: ATTEND Nurse Practitioner
DX: J42 Unspecified chronic bronchitis (principal)
CPT/HCPCS: 71046

== ENCOUNTER → 2024-02-21 | Outpatient (CLI) | payer OTHER ==
--- NOTE | 2024-02-21 13:26 | US ---
EXAMINATION TYPE: US thyroid st tissue head/neck DATE OF EXAM: 02/21/2024 COMPARISON: 07/06/2021 CLINICAL INDICATION: Female, 58 years old with history of E039 HYPOTHYROIDISM; on meds forever patien t said they readjust them all the time, Kierra's, h/o nodules GLAND SIZE: Right Lobe: 2.0 x 0.6 x 1.1 cm Overall Parenchyma: heterogeneous Left Lobe: 2.3 x 0.7 x 0.8 cm Overall Parenchyma: heterogeneous Isthmus Thickness: 0.2 cm NODULES RIGHT: # of nodules measured on right: gland is smaller in size since previous exam and nodule not seen today LEFT: # of nodules measured on left: gland is smaller in size since previous exam and nodule not seen today ISTHMUS: # of nodules measured in the isthmus: 0 Bilateral neck scanned, no evidence of lymphadenopathy. IMPRESSION: 1. Diminutive thyroid gland, smaller compared to prior study. 2. No thyroid nodules 2017 ACR TI-RADS LEVEL: 0 *Highest TI-RADS level nodule reported
--- NOTE | 2024-02-24 08:35 | MM ---
Reason for Exam: Screening (asymptomatic). Last mammogram was performed 2 year(s) and 7 month(s) ago. Patient History: Menarche at age 13. First Full-Term at age 27. Postmenopausal. Patient used Hormonal Contraceptives for 4 years. Core Biopsy on the Right side. 03/06/2001, Benign Stereotactic Core Biopsy on the right side. Sister had breast cancer, age 55. Mother had breast cancer, age 44. Risk Values: Blessing 5 year model risk: 6.9%. NCI Lifetime model risk: 33.8%. Prior Study Comparison: 07/10/2010 Bilateral Diagnostic Mammogram, [facility]. 07/06/2021 Bilateral Screening Mammogram, [facility]. 07/11/2021 Right Diagnostic Mammogram, [facility]. Tissue Density: The breasts are heterogeneously dense, which may obscure small masses. Findings: Analyzed By CAD. Right breast: There is no suspicious group of microcalcifications or new suspicious mass. Left breast: There is no suspicious group of microcalcifications or new suspicious mass. Overall Assessment: Negative, BI-RAD 1 Management: Screening Mammogram of both breasts in [address] [facility] will attempt to contact patient to return for supplemental views and ultrasound if indicated. Patient should continue monthly self-breast exams. A clinical breast exam by your physician is recommended on an annual basis. This exam should not preclude additional follow-up of suspicious palpable abnormalities. Note on Blessing scores and lifetime risk: 1. A Blessing score greater than 3% is considered moderate risk. If this is the case, consider specialist referral to assess eligibility for a risk reducing agent. 2. If overall lifetime risk for the development of breast cancer is 20% or higher, the patient may qualify for future screening with alternating mammogram and breast MRI. Electronically signed and approved by: Demetrius Mijares DO
== END | disposition home or self-care (01) ==
LOC: RADUSWWP 07:18
PROVIDERS: ATTEND Family Medicine
DX: Z12.31 Encounter for screening mammogram for malignant neoplasm of breast (principal); E03.9 Hypothyroidism, unspecified; Z78.0 Asymptomatic menopausal state; Z80.3 Family history of malignant neoplasm of breast
CPT/HCPCS: 76536; 77063; 77067